=== PATIENT | male | born 1980 | race Two or more races ===

== ENCOUNTER 2019-07-19 17:18 | Inpatient (IN) | payer MEDICAID ==
[~2019-07-19] VITALS: Ht 182.9 cm; Wt 104.2 kg
[2019-07-19 19:05] LABS: Basophils # (auto) 0 uL; Eosinophils # (auto) 0.1 uL; Monocytes # (auto) 0.4 uL; Neutrophils # (auto) 1.8 uL; Nucleated Red Blood Cells % 0.1 %
[2019-07-19 19:08] LABS: Basophils % (auto) 0.6 % (0.0-2.0); Eosinophils % (auto) 1.8 % (0.0-7.0); Hematocrit 32.3 % (41.0-53.0); Lymphocytes # (auto) 2.7 uL; Lymphocytes % (auto) 53.7 % (10.0-50.0); Mean Corpuscular Hemoglobin 20.4 pg (28.0-32.0); Mean Corpuscular Hgb Conc. 30.8 g/dL (32.0-36.0); Mean Corpuscular Volume 66.2 fL (80.0-100.0); Monocytes % (auto) 7.8 % (0.0-12.0); Neutrophils % (auto) 36.1 % (37.0-80.0); Platelet Count (auto) 264 10^3/uL (140-450); Red Blood Cells 4.89 10^6/uL (4.5-5.90); Red Cell Distribution Width 18.3 % (11.8-14.3); White Blood Cell 5.1 10^3/uL (4.4-10.8)
[2019-07-19 19:23] LABS: Albumin 3.8 g/dL (3.4-5.0); BUN/Creatinine Ratio 14.9; Bilirubin, Total 0.2 mg/dL (0.2-1.0); Potassium 4.1 mmol/L (3.5-5.1); Total Protein 8.7 g/dL (6.4-8.2)
[2019-07-19 19:29] LABS: Calcium 8.9 mg/dL (8.5-10.1)
[2019-07-19] MEDS ORDERED: SODIUM CHLORIDE 0.9% 1,000 ML IV ONE (19:30)
[2019-07-19 19:57] LABS: INR 1.01 (0.9-1.15); Partial Thromboplastin Time 24.8 sec (23.64-32.05)
[2019-07-19 19:58] LABS: Amylase 62 U/L (25-115); Blood Alcohol < 3.0 mg/dL (0-5); Lipase 137 U/L (73-393)
[2019-07-19] MEDS ORDERED: IOHEXOL 300 MG/ML 100ML BOTTLE IJ ONE (20:47)
[2019-07-19] MEDS ORDERED: OCTREOTIDE ACETATE 100 MCG in SODIUM CHL 0.9% 50 ML IV ONE (22:30)
[2019-07-19] MEDS ORDERED: MORPHINE SULFATE 4 MG/ML SYR/VIAL IV ONE (23:15)
[2019-07-19] MEDS ORDERED: ONDANSETRON HCL 4 MG/2 ML VIAL IV ONE (23:15)
[2019-07-19] MEDS ORDERED: OCTREOTIDE ACETATE 100 MCG/ML VL ONE (23:35)
[2019-07-19] MEDS ORDERED: OCTREOTIDE ACETATE 500 MCG/ML VL ONE (23:35)
[2019-07-20] MEDS: OCTREOTIDE ACETATE 500 MCG in SODIUM CHL 0.9% 99 ML IV SCH ×3 (00:11→17:45)
[2019-07-20] MEDS ORDERED: NITROGLYCERIN 0.4 MG SL TAB SL PRN (02:15)
[2019-07-20] MEDS ORDERED: PANTOPRAZOLE 40 MG TAB PO ONE (02:15)
[2019-07-20] MEDS ORDERED: MORPHINE SULF INJ 2 MG/ML SYRINGE 1ML IV PRN (02:15)
[2019-07-20] MEDS ORDERED: SODIUM CHLORIDE 0.9% 1,000 ML IV SCH (02:15)
[2019-07-20] MEDS ORDERED: ONDANSETRON HCL 4 MG/2 ML VIAL IV PRN (02:15)
[2019-07-20 03:32] LABS: Hemoglobin 9.5 g/dL (13.5-17.5)
[2019-07-20] MEDS ORDERED: MORPHINE SULFATE 4 MG/ML SYR/VIAL IV ONE (04:45)
[2019-07-20 05:00] VITALS: BP 134/74
[2019-07-20 06:30] VITALS: BP 134/74
[2019-07-20 08:41] VITALS: BP 113/67
[2019-07-20] MEDS: PANTOPRAZOLE 40 MG TAB PO SCH ×2 (10:47→22:48)
--- NOTE | 2019-07-20 11:52 | NUR ---
OPENING SHIFT NOTE ASSUMED CARE OF PATIENT. PATIENT IS AWAKE AND ALERT/ORIENTED X4. NO SOB OR SIGNS OF DISTRESS NOTED. INSTRUCTED ON POC AND TO CALL FOR HELP NEEDED. BED IS IN LOWEST POSITION WITH SIDE RAILS UP X2. WILL CONTINUE TO MONITOR.
[2019-07-20 12:38] VITALS: BP 100/59
[2019-07-20] MEDS ORDERED: ACETAMINOPHEN 500 MG TAB PO PRN (14:45)
[2019-07-20] MEDS: KETOROLAC TROMETH 30 MG/ML 1ML VIAL IV PRN ×3 (15:18→21:15)
[2019-07-20] MEDS ORDERED: NICOTINE 14 MG/24HR TOPICAL PATCH TD ONE (16:30)
[2019-07-20 16:45] VITALS: BP 128/86
[2019-07-20] MEDS: D5W/SOD CHL 0.45% 1,000 ML IV SCH (17:40)
[2019-07-20 22:00] VITALS: BP 116/76
[2019-07-20] MEDS: HYDROCORTONE 1% TOPICAL CREAM 30 GM TUBE TOP SCH (22:47)
[2019-07-21] MEDS: D5W/SOD CHL 0.45% 1,000 ML IV SCH (04:05)
[2019-07-21] MEDS: OCTREOTIDE ACETATE 500 MCG in SODIUM CHL 0.9% 99 ML IV SCH (04:30)
[2019-07-21 04:49] VITALS: BP 125/76
[2019-07-21 06:12] LABS: INR 1.06 (0.9-1.15); Partial Thromboplastin Time 22.7 sec (23.64-32.05)
[2019-07-21 06:18] LABS: Basophils # (auto) 0.1 uL; Basophils % (auto) 1.5 % (0.0-2.0); Eosinophils # (auto) 0.1 uL; Eosinophils % (auto) 2.8 % (0.0-7.0); Hematocrit 30.4 % (41.0-53.0); Lymphocytes # (auto) 1.6 uL; Mean Corpuscular Hemoglobin 20.7 pg (28.0-32.0); Mean Corpuscular Hgb Conc. 29.5 g/dL (32.0-36.0); Mean Corpuscular Volume 70.3 fL (80.0-100.0); Monocytes # (auto) 0.2 uL; Monocytes % (auto) 6.7 % (0.0-12.0); Neutrophils # (auto) 1.6 uL; Platelet Count (auto) 168 10^3/uL (140-450); Red Blood Cells 4.32 10^6/uL (4.5-5.90); Red Cell Distribution Width 17.8 % (11.8-14.3); White Blood Cell 3.6 10^3/uL (4.4-10.8)
[2019-07-21 06:34] LABS: Potassium 3.8 mmol/L (3.5-5.1)
[2019-07-21 06:39] LABS: Albumin 3.1 g/dL (3.4-5.0); BUN/Creatinine Ratio 11.6; Bilirubin, Total 0.3 mg/dL (0.2-1.0); Total Protein 7.2 g/dL (6.4-8.2)
[2019-07-21] MEDS: KETOROLAC TROMETH 30 MG/ML 1ML VIAL IV PRN ×3 (07:03→20:33)
--- NOTE | 2019-07-21 08:15 | NUR ---
OPENING SHIFT NOTE ASSUMED CARE OF PATIENT. PATIENT IS AWAKE AND ALERT/ORIENTED X4. NO SOB OR SIGNS OF DISTRESS NOTED. INSTRUCTED ON POC AND TO CALL FOR HELP NEEDED. BED IS IN LOWEST POSITION WITH SIDE RAILS UP X2. CALL LIGHT WITHIN REACH. WILL CONTINUE TO MONITOR Q1HR.
[2019-07-21 09:16] VITALS: BP 108/65
[2019-07-21] MEDS: PANTOPRAZOLE 40 MG TAB PO SCH ×2 (10:39→22:00)
[2019-07-21] MEDS: NICOTINE 14 MG/24HR TOPICAL PATCH TD SCH (10:40)
[2019-07-21] MEDS: HYDROCORTONE 1% TOPICAL CREAM 30 GM TUBE TOP SCH ×2 (10:42→22:00)
[2019-07-21 12:44] VITALS: BP 123/83
[2019-07-21 12:57] LABS: % Iron Saturation 3.6 % (20-55)
--- NOTE | 2019-07-21 13:55 | NUR ---
PAST MEDICAL RECORDS COLLECTED FROM FAMILY MEMBER PER DR REQUEST. COPIES PLACED PT FOLDER.
--- NOTE | 2019-07-21 14:00 | NUR ---
STOOL SAMPLE COLLECTED. SENT TO LAB.
[2019-07-21 17:18] VITALS: BP 128/76
[2019-07-21] MEDS: FERROUS SULFATE 325 MG TAB PO SCH (17:38)
[2019-07-21 22:00] VITALS: BP 124/12
[2019-07-22] MEDS: KETOROLAC TROMETH 30 MG/ML 1ML VIAL IV PRN ×3 (02:46→16:19)
[2019-07-22 05:37] LABS: Hematocrit 27.5 % (41.0-53.0); Hemoglobin 8.7 g/dL (13.5-17.5)
[2019-07-22 05:58] VITALS: BP 114/72
--- NOTE | 2019-07-22 08:00 | NUR ---
OPENING SHIFT NOTE ASSUMED CARE OF PATIENT. PATIENT IS AWAKE, ALERT, AND ORIENTED. NO SOB OR SIGNS OF DISTRESS NOTED. INSTRUCTED ON POC AND TO CALL FOR HELP NEEDED WITH CALL LIGHT WITHIN REACH. BED IS IN LOWEST/LOCKED POSITION WITH SIDE RAILS UP X2. CALL LIGHT WITHIN REACH. WILL CONTINUE TO MONITOR Q1HR.
[2019-07-22] MEDS: FERROUS SULFATE 325 MG TAB PO SCH ×2 (08:14→17:46)
[2019-07-22] MEDS: PANTOPRAZOLE 40 MG TAB PO SCH ×2 (08:14→22:05)
[2019-07-22] MEDS: NICOTINE 14 MG/24HR TOPICAL PATCH TD SCH (08:15)
[2019-07-22] MEDS: HYDROCORTONE 1% TOPICAL CREAM 30 GM TUBE TOP SCH ×2 (08:17→22:05)
[2019-07-22 09:00] VITALS: BP 114/71
[2019-07-22 10:41] LABS: Hepatitis B Surface Antibody Negative
[2019-07-22 11:17] LABS: Hepatitis A Total Antibody Positive
[2019-07-22 13:00] VITALS: BP 122/80
[2019-07-22 14:01] LABS: Hepatitis B Surface Antigen Negative (Negative)
[2019-07-22 14:02] LABS: Hepatitis B Core Total AB Negative
[2019-07-22 14:04] LABS: Hepatitis C Antibody Positive (Negative)
--- NOTE | 2019-07-22 14:05 | NUR ---
LAB RECEIVED PHONE CALL FROM LAB RE: PATIENT POSITIVE FOR HEPATITIS C. WILL NOTIFY
--- NOTE | 2019-07-22 16:55 | NUR ---
MD ROUNDS DR AMBROSE AT BEDSIDE DISCUSSING POC WITH PATIENT. ALL QUESTIONS/CONCERNS ANSWERED. NEW ORDERS RECEIVED/CARRIED OUT. WILL CONTINUE TO MONITOR
[2019-07-22] MEDS ORDERED: GOLYTELY 4L KIT PO ONE (17:15)
--- NOTE | 2019-07-22 17:15 | NUR ---
MD ROUNDS DR BERNAL AT BEDSIDE DISCUSSING POC WITH PATIENT. ALL QUESTIONS/CONCERNS ANSWERED. NEW ORDERS RECEIVED/CARRIED OUT. WILL CONTINUE TO MONITOR
[2019-07-22 17:23] VITALS: BP 131/77
[2019-07-22] MEDS: HYDROcodone-ACET 7.5/325MG TAB PO PRN (18:30)
--- NOTE | 2019-07-22 19:25 | NUR ---
Opening Shift Note Assumed care of patient, awake and alert x 4. No S/S of distress/SOB. Bed is in lowest position and locked. Call light within reach. Board updated. Tele box number matches monitor and leads are in correct placement. Instructed on POC and to call for assist PRN, will continue to monitor for changes Q1hr and PRN.
[2019-07-22 20:00] VITALS: BP 131/77
[2019-07-22 21:00] VITALS: BP 117/79
[2019-07-22] MEDS: CARISOPRODOL 350 MG TAB PO SCH (22:05)
[2019-07-22 22:23] LABS: Urine Bacteria NONE SEEN /hpf (None Seen); Urine Blood Negative /uL (Negative); Urine Mucus FEW (None Seen); Urine Specific Gravity 1.005 (1.001-1.035); Urine WBC <1 /hpf (0 - 3)
--- NOTE | 2019-07-23 | NUR ---
Patient has completed drinking nearly 3/4 of go-lytely.
[2019-07-23] MEDS: HYDROcodone-ACET 7.5/325MG TAB PO PRN ×3 (00:06→18:19)
[2019-07-23 04:50] VITALS: BP 108/70
[2019-07-23 08:39] LABS: Eosinophils # (auto) 0.1 uL; Lymphocytes # (auto) 1.7 uL; Monocytes # (auto) 0.2 uL; Nucleated Red Blood Cells % 0.1 %; White Blood Cell 3.1 10^3/uL (4.4-10.8)
[2019-07-23 08:41] LABS: Basophils # (auto) 0 uL; Basophils % (auto) 0.9 % (0.0-2.0); Eosinophils % (auto) 2.2 % (0.0-7.0); Hematocrit 29.3 % (41.0-53.0); Hemoglobin 9.2 g/dL (13.5-17.5); Lymphocytes % (auto) 54.2 % (10.0-50.0); Mean Corpuscular Hemoglobin 20.6 pg (28.0-32.0); Mean Corpuscular Hgb Conc. 31.6 g/dL (32.0-36.0); Mean Corpuscular Volume 65.3 fL (80.0-100.0); Neutrophils # (auto) 1.1 uL; Neutrophils % (auto) 35.7 % (37.0-80.0); Platelet Count (auto) 185 10^3/uL (140-450); Red Blood Cells 4.48 10^6/uL (4.5-5.90); Red Cell Distribution Width 18.1 % (11.8-14.3)
[2019-07-23 08:51] LABS: INR 1.05 (0.9-1.15); Partial Thromboplastin Time 23.4 sec (23.64-32.05)
[2019-07-23 09:00] VITALS: BP 109/64
[2019-07-23] MEDS: PANTOPRAZOLE 40 MG TAB PO SCH (09:23)
[2019-07-23] MEDS: FERROUS SULFATE 325 MG TAB PO SCH ×2 (09:23→18:19)
[2019-07-23] MEDS: HYDROCORTONE 1% TOPICAL CREAM 30 GM TUBE TOP SCH (09:24)
[2019-07-23] MEDS: CARISOPRODOL 350 MG TAB PO SCH (10:00)
--- NOTE | 2019-07-23 12:53 | NUR ---
Nutrition Assessment Notes please see attached link for complete assessment Est. Needs ABW [id number] kcal (23-25 kcal/kgBW), 92-101 gms pro (1.0-1.1 gms/kgBW). Will continue to monitor pertinent labs and reassess nutrient need prn Addendum: 07/23/19 at [address] Amended: Links added.
[2019-07-23 13:00] VITALS: BP 106/68
--- NOTE | 2019-07-23 13:33 | NUR ---
OFF UNIT PATIENT DOWN TO OR
[2019-07-23] MEDS ORDERED: MIDAZOLAM HCL 1MG/1ML-2 ML VIAL ONE (14:04)
[2019-07-23] MEDS ORDERED: KETAMINE HCL 1 ML ONE (14:05)
[2019-07-23] MEDS ORDERED: diphenhdrAMINE HCL 50 MG/1 ML VL ONE (14:06)
[2019-07-23] MEDS ORDERED: GLYCOPYRROLATE 0.2 MG/ML 1ML VIAL ONE (14:06)
[2019-07-23] MEDS ORDERED: METOCLOPRAMIDE HCL 5MG/ml INJ 2ml VIAL ONE (14:06)
[2019-07-23] MEDS ORDERED: PROPOFOL 10 MG/ML 20 ML IV ONE (14:07)
[2019-07-23] MEDS ORDERED: LIDOCAINE 2% (LOCAL ANESTH.) PF 5ml SDV ONE (14:07)
[2019-07-23] MEDS ORDERED: HYDROmorphone HCL 2 MG/ML VL IV PRN (14:30)
[2019-07-23] MEDS ORDERED: ONDANSETRON HCL 4 MG/2 ML VIAL IV PRN (14:30)
[2019-07-23] MEDS ORDERED: NALOXONE HCL 0.4 MG/ML VIAL IV PRN (14:30)
[2019-07-23] MEDS: NICOTINE 14 MG/24HR TOPICAL PATCH TD SCH (16:21)
[2019-07-23 16:44] VITALS: BP 127/84
--- NOTE | 2019-07-23 19:03 | NUR ---
Discharge instructions given as ordered. Encourage to follow up with PMD as instructed. All questions and concerns addressed. Patient verbalized understanding. IV removed with catheter intact, pressure dressing applied. Telemetry unit returned to ICU. Patient taken to vehicle via wheelchair with all personal belongings, accompanied by staff and family member. No distress noted at time of departure.
== END 2019-07-23 18:45 | disposition home or self-care (01) | DRG 241 ==
LOC: ER 17:18 → TELE 17:19 → TELE-CENTR 07-20 05:02
PROVIDERS: ADMIT Nurse Practitioner; ATTEND Internal Medicine
PROC: 0DB68ZX Excision of Stomach, Via Natural or Artificial Opening Endoscopic, Diagnostic (ICD-10-PCS; principal; 2019-07-23 14:05)
PROC: 0DJD8ZZ Inspection of Lower Intestinal Tract, Via Natural or Artificial Opening Endoscopic (ICD-10-PCS; 2019-07-23 14:05)
DX: K29.61 Other gastritis with bleeding (principal); K57.31 Diverticulosis of large intestine without perforation or abscess with bleeding; K64.8 Other hemorrhoids; K64.4 Residual hemorrhoidal skin tags; D62 Acute posthemorrhagic anemia; F17.210 Nicotine dependence, cigarettes, uncomplicated; G89.29 Other chronic pain; M54.40 Lumbago with sciatica, unspecified side; E66.9 Obesity, unspecified; Z68.31 Body mass index [BMI] 31.0-31.9, adult; J44.9 Chronic obstructive pulmonary disease, unspecified; G40.909 Epilepsy, unspecified, not intractable, without status epilepticus
CPT/HCPCS: 36415; 43239; 45378; 71045; 74177; 80053; 80320; 81001; 82150; 82270; 82728; 83540; 83550; 83690; 85014; 85018; 85025; 85610; 85730; 86704; 86706; 86708; 86803; 86850; 86900; 86901; 87340; 93005; 96361; 96365; 96375; G0378; J1885; J2001; J2250; J2405; J2704